=== PATIENT | male | born 1970 | race Two or more races ===

== ENCOUNTER 2017-09-27 | Inpatient (IN) | payer MEDICARE, MEDICAID ==
[~2017-09-27] VITALS: Ht 177.8 cm; Wt 80.2 kg
[~2017-09-27] MED LIST: ACET-75 PO; CETI10TA18 PO; CYCL-1 PO; DIPH-423 PO; DIPH25CA46 PO; GLUC100017 PO; LACT10SO PO; NAPR-1144 PO; NAPR-56 PO; NORT25CA PO; OMEG-79 PO; PRED5DRO7 OP; SERT50TA PO; TRAM50TA2 PO; TRAZ-143 PO; TRIA10.8 INH; ZIPR20CA2 PO
[2017-09-27] MEDS ORDERED: adenosine 3mg/ml 2ml vial IV ONE ×4 (00:19→06:00)
[2017-09-27] MEDS ORDERED: normal saline 1000ml 1,000 ML IV ONE ×4 (00:30→01:10)
[2017-09-27] MEDS ORDERED: diltiazem 5mg/ml 5ml inj. IV ONE (00:30)
[2017-09-27] MEDS ORDERED: LORazepam 2 mg/ml vial IV ONE (00:35)
[2017-09-27] MEDS ORDERED: diltiazem-D5W 125mg/125ml 125 ML IV SCH (00:35)
[2017-09-27] MEDS ORDERED: LEVOCARNITINE 200 MG/ML IV ONE (00:36)
[2017-09-27] MEDS ORDERED: diltiazem-D5W 125mg/125ml 125 ML IV ONE (00:38)
[2017-09-27] MEDS ORDERED: verapamil 2.5 mg/ml inj IV ONE (00:40)
[2017-09-27] MEDS: amiodarone/D5 450MG/250ML BAG 250 ML IV SCH ×2 (00:58→09:07)
[2017-09-27] MEDS ORDERED: normal saline 1000ml 1,000 ML IV SCH (01:10)
[2017-09-27 01:27] LABS: ALANINE AMINOTRANSFERASE 58 U/L (12-78); ALBUMIN 3.5 G/DL (3.4-5.0); ALBUMIN/GLOBULIN RATIO 0.9 (1.1-1.5); ALKALINE PHOSPHATASE 124 IU/L (46-116); ANION GAP 11 (8-16); ASPARTATE AMINO TRANSFERASE 80 U/L (10-37); BILIRUBIN,TOTAL 0.3 MG/DL (0.1-1.0); BLOOD UREA NITROGEN 15 MG/DL (7-18); CALCIUM 8.3 MG/DL (8.5-10.1); CHLORIDE 104 MMOL/L (99-107); CREATININE 1.36 MG/DL (0.60-1.10); GLUCOSE 224 MG/DL (70-104); SODIUM 141 MMOL/L (135-145); TOTAL CARBON DIOXIDE 26.4 MMOL/L (24-32); TOTAL PROTEIN 7.2 G/DL (6.4-8.2); eGFR 56 ML/MIN
[2017-09-27 01:29] LABS: POTASSIUM 4.4 MMOL/L (3.5-5.1)
[2017-09-27] MEDS ORDERED: amiodarone 50MG/ML inj IV ONE ×2 (01:45→06:00)
[2017-09-27 02:11] LABS: BASOPHILS % (AUTO) 0.2 % (0-1); EOSINOPHILS # (AUTO) 0.3 X10'3 (0-0.9); EOSINOPHILS % (AUTO) 1.3 % (0-6); HEMATOCRIT 41.6 % (42.0-52.0); HEMOGLOBIN 14.2 g/dl (14.0-17.9); LYMPHOCYTES # (AUTO) 1.4 X10'3 (1.1-4.8); LYMPHOCYTES % (AUTO) 5.9 % (21-51); MEAN CORPUSCULAR HEMOGLOBIN 30.6 PG (27.0-31.0); MEAN CORPUSCULAR HGB CONC 34.1 % (33.0-36.5); MEAN CORPUSCULAR VOLUME 89.8 FL (78-98); MEAN PLATELET VOLUME 8.1 FL (7.4-10.4); MONOCYTES % (AUTO) 4.1 % (2-12); NEUTROPHILS % (AUTO) 88.5 % (42-75); PLATELET COUNT 359 X10'3 (140-440); RED BLOOD COUNT 4.63 X10'6 (4.70-6.10); RED CELL DISTRIBUTION WIDTH 11.8 % (11.5-14.5); WHITE BLOOD COUNT 23.7 X10'3 (4.5-11.0)
[2017-09-27] MEDS ORDERED: cefTRIAXone 1g/NS 100ml IVPB 100 ML IV ONE (02:25)
[2017-09-27 02:51] LABS: INR 1.1 INR; PARTIAL THROMBOPLASTIN TIME 26 SECONDS (22-32)
[2017-09-27] MEDS ORDERED: potassium Cl 20 mEq SR tablet PO PRN ×2 (02:55)
[2017-09-27] MEDS: normal saline 1000ml 1,000 ML IV SCH ×3 (02:55→22:53)
[2017-09-27] MEDS ORDERED: potassium Cl 40MEQ/NS 500ml 500 ML IV PRN ×2 (02:55)
[2017-09-27] MEDS ORDERED: ondansetron/PF 4mg/2ml inj IV PRN (02:55)
[2017-09-27] MEDS ORDERED: magnesium 2GM in 50ml NS 50 ML IV PRN (02:55)
[2017-09-27] MEDS ORDERED: magnesium Cl slow-release 64mg tablet PO PRN (02:55)
[2017-09-27] MEDS ORDERED: magnesium hydroxide 30ml (MOM) UD suspension PO PRN (02:55)
[2017-09-27] MEDS ORDERED: acetaminophen 325mg tablet PO PRN (02:55)
[2017-09-27] MEDS ORDERED: magnesium 4gm in 100ml NS 100 ML IV PRN (02:55)
[2017-09-27] MEDS ORDERED: mag hydrox/Alum hydrox/simeth 30ml oral suspension PO PRN (02:55)
[2017-09-27 03:52] LABS: CLARITY,URINE CLEAR (Clear); COLOR,URINE YELLOW (Yellow); GLUCOSE, URINE 100 mg/dl (Neg); KETONES,URINE NEGATIVE (Neg); LEUKOCYTE ESTERASE ,URINE NEGATIVE (Neg); NITRITES, URINE NEGATIVE (Neg); OCCULT BLOOD,URINE NEGATIVE (Neg); PROTEIN,URINE NEGATIVE (Neg); UROBILINOGEN,URINE 0.2 E.U/dL (0.2-1.0)
[2017-09-27 03:55] LABS: UA COLLECTION TYPE NON-SPECIFIED
[2017-09-27 03:58] LABS: URINE AMPHETAMINE SCREEN NEGATIVE (Neg); URINE BARBITUATE SCREEN NEGATIVE (Neg); URINE BENZODIAZEPINES SCREEN NEGATIVE (Neg); URINE CANNABINOID SCREEN NEGATIVE (Neg); URINE COCAINE SCREEN NEGATIVE (Neg); URINE METHADONE SCREEN NEGATIVE (Neg); URINE OPIATE SCREEN NEGATIVE (Neg); URINE PHENCYCLIDINE SCREEN NEGATIVE (Neg)
[2017-09-27] MEDS: enoxaparin 80mg/0.8ml syringe SUBCUT SCH ×2 (05:57→20:00)
[2017-09-27] MEDS ORDERED: magnesium sulf 1 GM/2 ML ONE (06:00)
[2017-09-27] MEDS ORDERED: naproxen 500mg tablet PO SCH (07:30)
[2017-09-27] MEDS: K and/or MAG REPLACEMENT MC SCH (08:00)
[2017-09-27] MEDS: cetirizine 10mg tablet PO SCH (08:00)
[2017-09-27 08:23] LABS: BASOPHILS % (AUTO) 0.3 % (0-1); EOSINOPHILS # (AUTO) 0.1 X10'3 (0-0.9); EOSINOPHILS % (AUTO) 1.1 % (0-6); HEMATOCRIT 36.2 % (42.0-52.0); HEMOGLOBIN 12.4 g/dl (14.0-17.9); LYMPHOCYTES # (AUTO) 1.5 X10'3 (1.1-4.8); LYMPHOCYTES % (AUTO) 13.7 % (21-51); MEAN CORPUSCULAR HEMOGLOBIN 30.7 PG (27.0-31.0); MEAN CORPUSCULAR HGB CONC 34.2 % (33.0-36.5); MEAN PLATELET VOLUME 8.4 FL (7.4-10.4); MONOCYTES # (AUTO) 0.7 X10'3 (0-0.9); MONOCYTES % (AUTO) 6.7 % (2-12); NEUTROPHILS # (AUTO) 8.6 X10'3 (1.8-7.7); NEUTROPHILS % (AUTO) 78.2 % (42-75); PLATELET COUNT 330 X10'3 (140-440); RED BLOOD COUNT 4.03 X10'6 (4.70-6.10); RED CELL DISTRIBUTION WIDTH 12.6 % (11.5-14.5)
[2017-09-27 08:33] LABS: ALANINE AMINOTRANSFERASE 65 U/L (12-78); ALBUMIN 3.1 G/DL (3.4-5.0); ALBUMIN/GLOBULIN RATIO 0.9 (1.1-1.5); ALKALINE PHOSPHATASE 110 IU/L (46-116); ANION GAP 6 (8-16); ASPARTATE AMINO TRANSFERASE 62 U/L (10-37); BILIRUBIN,TOTAL 0.3 MG/DL (0.1-1.0); BLOOD UREA NITROGEN 12 MG/DL (7-18); BUN/CREATININE RATIO 11.8 (5.4-32.0); CHLORIDE 106 MMOL/L (99-107); CREATININE 1.02 MG/DL (0.60-1.10); GLUCOSE 113 MG/DL (70-104); POTASSIUM 4.6 MMOL/L (3.5-5.1); SODIUM 140 MMOL/L (135-145); TOTAL CARBON DIOXIDE 27.7 MMOL/L (24-32); TOTAL PROTEIN 6.4 G/DL (6.4-8.2); eGFR 78 ML/MIN
[2017-09-27] MEDS: ziprasidone 20mg capsule PO SCH ×2 (08:59→20:56)
[2017-09-27] MEDS: sertraline 50mg tablet PO SCH (08:59)
[2017-09-27] MEDS: diphenhydrAMINE 25mg capsule PO SCH (09:00)
[2017-09-27] MEDS ORDERED: nitroGLYCERIN 0.4mg SUBLingual tab SL PRN (09:45)
[2017-09-27] MEDS: aspirin 325mg tablet, delayed-release (Ecotrin) PO SCH (10:31)
[2017-09-27] MEDS: metoprolol tartrate 12.5mg (1/2 tablet) PO SCH ×2 (10:32→20:56)
[2017-09-27] MEDS ORDERED: OXYM10TA6 PO (11:25)
[2017-09-27] MEDS ORDERED: FERR325T28 PO (11:25)
[2017-09-27 13:01] LABS: ALANINE AMINOTRANSFERASE 61 U/L (12-78); ALBUMIN 3.4 G/DL (3.4-5.0); ALBUMIN/GLOBULIN RATIO 1.1 (1.1-1.5); ALKALINE PHOSPHATASE 108 IU/L (46-116); ASPARTATE AMINO TRANSFERASE 46 U/L (10-37); BILIRUBIN,TOTAL 0.3 MG/DL (0.1-1.0); TOTAL PROTEIN 6.6 G/DL (6.4-8.2)
[2017-09-27] MEDS ORDERED: glucagon, human recombinant 1mg kit SUBCUT PRN (15:30)
[2017-09-27] MEDS ORDERED: insulin Lispro (HumaLOG) vial - multi-dose SQ SCH (15:30)
[2017-09-27] MEDS ORDERED: dextrose 50%-water 50ml dispensing syringe IV PRN ×2 (15:30)
[2017-09-27] MEDS ORDERED: dextrose ORAL solution 15 GM/59 ML bottle PO PRN ×2 (15:30)
[2017-09-27] MEDS ORDERED: MESSAGE TO PHARMACY PO ONE (15:30)
[2017-09-27] MEDS: amiodarone 200mg tablet PO SCH (20:55)
[2017-09-27] MEDS ORDERED: lactulose 20gm/30ml cup PO SCH (21:00)
[2017-09-27] MEDS ORDERED: nortriptyline 25mg capsule PO SCH (21:00)
[2017-09-27] MEDS ORDERED: warfarin 5mg tablet PO ONE (21:00)
[2017-09-27] MEDS ORDERED: traZODone 50mg tablet PO SCH (21:00)
[2017-09-27 23:00] VITALS: BP 106/63
[2017-09-28 02:35] VITALS: BP 96/60
[2017-09-28 05:49] LABS: BASOPHILS % (AUTO) 0.4 % (0-1); EOSINOPHILS # (AUTO) 0.6 X10'3 (0-0.9); EOSINOPHILS % (AUTO) 6.5 % (0-6); HEMATOCRIT 33.9 % (42.0-52.0); HEMOGLOBIN 11.6 g/dl (14.0-17.9); LYMPHOCYTES # (AUTO) 2.2 X10'3 (1.1-4.8); MEAN CORPUSCULAR HEMOGLOBIN 30.7 PG (27.0-31.0); MEAN CORPUSCULAR HGB CONC 34.3 % (33.0-36.5); MEAN CORPUSCULAR VOLUME 89.5 FL (78-98); MEAN PLATELET VOLUME 8.1 FL (7.4-10.4); MONOCYTES # (AUTO) 0.7 X10'3 (0-0.9); MONOCYTES % (AUTO) 7.8 % (2-12); NEUTROPHILS % (AUTO) 62.3 % (42-75); PLATELET COUNT 276 X10'3 (140-440); RED BLOOD COUNT 3.79 X10'6 (4.70-6.10); RED CELL DISTRIBUTION WIDTH 12.7 % (11.5-14.5); WHITE BLOOD COUNT 9.6 X10'3 (4.5-11.0)
[2017-09-28 06:00] VITALS: BP 107/68
[2017-09-28 06:11] LABS: INR 1.1 INR; PROTHROMBIN TIME 11.4 SECONDS (9.0-12.0)
[2017-09-28 06:34] LABS: ALANINE AMINOTRANSFERASE 49 U/L (12-78); ALBUMIN 3.1 G/DL (3.4-5.0); ALKALINE PHOSPHATASE 94 IU/L (46-116); ANION GAP 7 (8-16); ASPARTATE AMINO TRANSFERASE 30 U/L (10-37); BILIRUBIN,TOTAL 0.3 MG/DL (0.1-1.0); BLOOD UREA NITROGEN 12 MG/DL (7-18); BUN/CREATININE RATIO 13.8 (5.4-32.0); CALCIUM 7.4 MG/DL (8.5-10.1); CHLORIDE 106 MMOL/L (99-107); CHOLESTEROL 151 MG/DL (0-200); CREATININE 0.87 MG/DL (0.60-1.10); GLUCOSE 135 MG/DL (70-104); HDL CHOLESTEROL 74 MG/DL (35-60); LDL CHOLESTEROL 63 MG/DL (50-100); MAGNESIUM 1.9 MG/DL (1.5-2.4); POTASSIUM 4.3 MMOL/L (3.5-5.1); SODIUM 141 MMOL/L (135-145); TOTAL CARBON DIOXIDE 27.6 MMOL/L (24-32); TOTAL PROTEIN 6.3 G/DL (6.4-8.2); TRIGLYCERIDES 99 MG/DL (20-135); eGFR > 90 ML/MIN
[2017-09-28 06:36] LABS: TROPONIN I 0.33 NG/ML (0.0-0.05)
[2017-09-28] MEDS: metoprolol tartrate 12.5mg (1/2 tablet) PO SCH (07:28)
[2017-09-28] MEDS: cetirizine 10mg tablet PO SCH (07:28)
[2017-09-28] MEDS: aspirin 325mg tablet, delayed-release (Ecotrin) PO SCH (07:33)
[2017-09-28] MEDS: amiodarone 200mg tablet PO SCH (07:33)
[2017-09-28] MEDS: ziprasidone 20mg capsule PO SCH (07:34)
[2017-09-28] MEDS: diphenhydrAMINE 25mg capsule PO SCH (07:35)
[2017-09-28] MEDS: sertraline 50mg tablet PO SCH (07:36)
[2017-09-28] MEDS: enoxaparin 80mg/0.8ml syringe SUBCUT SCH (07:39)
[2017-09-28] MEDS: K and/or MAG REPLACEMENT MC SCH (08:00)
[2017-09-28] MEDS: normal saline 1000ml 1,000 ML IV SCH (08:53)
[2017-09-28] MEDS ORDERED: FERR325T28 PO (10:33)
[2017-09-28] MEDS ORDERED: WARF2TAB7 PO (10:33)
[2017-09-28] MEDS ORDERED: METO25TA6 PO (10:33)
[2017-09-28] MEDS ORDERED: LACT10SO32 PO (10:33)
== END 2017-09-28 11:40 | disposition home or self-care (01) | DRG 309 ==
LOC: ER 00:01 → ED HOLD 02:53 → PCU 3S 19:20
PROVIDERS: ADMIT Internal Medicine; ATTEND Internal Medicine
DX: I47.1 Supraventricular tachycardia (principal); I42.9 Cardiomyopathy, unspecified; I07.1 Rheumatic tricuspid insufficiency; I48.92 Unspecified atrial flutter; I48.91 Unspecified atrial fibrillation; E86.0 Dehydration; D72.829 Elevated white blood cell count, unspecified; F32.9 Major depressive disorder, single episode, unspecified; R73.9 Hyperglycemia, unspecified; G47.00 Insomnia, unspecified; I25.10 Atherosclerotic heart disease of native coronary artery without angina pectoris; N28.9 Disorder of kidney and ureter, unspecified; G89.29 Other chronic pain; M54.9 Dorsalgia, unspecified; R62.50 Unspecified lack of expected normal physiological development in childhood; F17.220 Nicotine dependence, chewing tobacco, uncomplicated; Z79.01 Long term (current) use of anticoagulants; Z79.899 Other long term (current) drug therapy; Z88.5 Allergy status to narcotic agent
CPT/HCPCS: 36415; 71045; 80053; 80061; 80076; 80305; 81003; 82948; 83036; 83735; 84439; 84443; 84484; 85025; 85610; 85730; 87070; 93306; 96361; 96374; 96375; 99285; J0153; J0282; J0696; J1650; J2060; J3475; J3490; J7030; Q0163

== ENCOUNTER 2021-02-10 05:51 | Day surgery (SDC) | payer MEDICARE, MEDICAID ==
[~2021-02-10] VITALS: Ht 175.3 cm; Wt 87.3 kg
[2021-02-10] VITALS (9 sets, daily range): BP systolic 100–124; BP diastolic 44–87
[~2021-02-10 05:51] MED LIST changes: +DIPH-1055 PO; -DIPH-423 PO; -DIPH25CA46 PO; +FERR325T28 PO; -LACT10SO PO; +LACT10SO32 PO; +LOP25T PO; -NAPR-1144 PO; -NAPR-56 PO; +OXYM10TA6 PO; -TRAZ-143 PO; +TRAZ-251 PO; +WARF-65 PO
[2021-02-10] MEDS ORDERED: normal saline 1,000 ML IV SCH (06:15)
[2021-02-10] MEDS ORDERED: diphenhydrAMINE 25mg capsule PO PRN (06:15)
[2021-02-10 06:50] LABS: EOSINOPHILS # (AUTO) 0.3 X10'3 (0-0.9); LYMPHOCYTES # (AUTO) 2.1 X10'3 (1.1-4.8)
[2021-02-10 06:52] LABS: BASOPHILS % (AUTO) 0.4 % (0-1); HEMATOCRIT 43.4 % (42.0-52.0); HEMOGLOBIN 14.8 g/dl (14.0-17.9); LYMPHOCYTES % (AUTO) 22.9 % (21-51); MEAN CORPUSCULAR HEMOGLOBIN 30.6 PG (27.0-31.0); MEAN CORPUSCULAR HGB CONC 34.2 g/dL (33.0-36.5); MEAN CORPUSCULAR VOLUME 89.6 FL (78-98); MEAN PLATELET VOLUME 8.3 FL (7.4-10.4); MONOCYTES # (AUTO) 0.7 X10'3 (0-0.9); MONOCYTES % (AUTO) 7.9 % (2-12); NEUTROPHILS % (AUTO) 65.8 % (42-75); PLATELET COUNT 375 X10'3 (140-440); RED BLOOD COUNT 4.84 X10'6 (4.70-6.10); RED CELL DISTRIBUTION WIDTH 12.8 % (11.5-14.5); WHITE BLOOD COUNT 9.2 X10'3 (4.5-11.0)
[2021-02-10 07:01] LABS: PARTIAL THROMBOPLASTIN TIME 34 SECONDS (22-32)
[2021-02-10] MEDS ORDERED: LORA10TA7 PO (07:05)
[2021-02-10] MEDS ORDERED: WARF4TAB69 PO (07:05)
[2021-02-10] MEDS ORDERED: GABA-530 PO (07:05)
[2021-02-10] MEDS ORDERED: RISP0.5T50 PO (07:05)
[2021-02-10] MEDS ORDERED: SERT100T PO (07:05)
[2021-02-10] MEDS ORDERED: METF-436 PO (07:05)
[2021-02-10] MEDS ORDERED: [UNRECOGNIZED DRUG - CODE] PO (07:05)
[2021-02-10] MEDS ORDERED: ROSU40TA PO (07:05)
[2021-02-10] MEDS ORDERED: COL250C PO (07:05)
[2021-02-10 07:29] LABS: ALANINE AMINOTRANSFERASE 26 U/L (12-78); ALBUMIN 4.6 G/DL (3.4-5.0); ALBUMIN/GLOBULIN RATIO 1.2 (1.1-1.5); ALKALINE PHOSPHATASE 86 IU/L (46-116); ANION GAP 10 (8-16); ASPARTATE AMINO TRANSFERASE 16 U/L (10-37); BILIRUBIN,TOTAL 0.5 MG/DL (0.1-1.0); BLOOD UREA NITROGEN 12 MG/DL (7-18); BUN/CREATININE RATIO 12.1 (5.4-32.0); CALCIUM 8.6 MG/DL (8.5-10.1); CHLORIDE 100 MMOL/L (99-107); CREATININE 0.99 MG/DL (0.60-1.10); GLUCOSE 136 MG/DL (70-104); MAGNESIUM 1.9 MG/DL (1.5-2.4); POTASSIUM 4.5 MMOL/L (3.5-5.1); SODIUM 138 MMOL/L (135-145); TOTAL CARBON DIOXIDE 27.9 MMOL/L (24-32); TOTAL PROTEIN 8.3 G/DL (6.4-8.2); eGFR 79 ML/MIN
[2021-02-10] MEDS ORDERED: fentaNYL/PF 50MCG/1 ML 2ML syringe ONE (08:15)
[2021-02-10] MEDS ORDERED: iohexol 350 MG/ML 50ML vial IV ONE ×2 (08:15→09:42)
[2021-02-10] MEDS ORDERED: heparin 1,000unit/ml 10ml vial 10 ML ONE (08:15)
[2021-02-10] MEDS ORDERED: iohexol 350MG/ML 100ml bottle IV ONE (08:15)
[2021-02-10] MEDS ORDERED: LIDOcaine 1% (10mg/ml)w/preservative injection 20ml MDV ONE (08:15)
[2021-02-10] MEDS ORDERED: midazolam 1 mg/ML 2ml injection ONE ×4 (08:15→09:27)
[2021-02-10] MEDS ORDERED: proCHLORperazine 10 MG/2 ml inj ONE (09:25)
[2021-02-10] MEDS ORDERED: diphenhydrAMINE 50 mg/ml inj ONE (09:34)
[2021-02-10] MEDS ORDERED: ondansetron/PF 4mg/2ml inj IV PRN (10:20)
[2021-02-10] MEDS ORDERED: proCHLORperazine 10 MG/2 ml inj IV PRN (10:20)
[2021-02-10] MEDS ORDERED: acetaminophen 325mg tablet PO PRN (10:20)
== END 2021-02-10 13:15 | disposition home or self-care (01) ==
LOC: SSTAY O 05:51
PROVIDERS: ATTEND Internal Medicine Cardiovascular Disease
DX: R94.39 Abnormal result of other cardiovascular function study (principal); I37.1 Nonrheumatic pulmonary valve insufficiency; I48.3 Typical atrial flutter; I45.19 Other right bundle-branch block; F25.9 Schizoaffective disorder, unspecified; E78.5 Hyperlipidemia, unspecified; F17.220 Nicotine dependence, chewing tobacco, uncomplicated; Z88.5 Allergy status to narcotic agent; Z79.899 Other long term (current) drug therapy; Z79.01 Long term (current) use of anticoagulants; Z98.890 Other specified postprocedural states; Z82.49 Family history of ischemic heart disease and other diseases of the circulatory system
CPT/HCPCS: 36415; 80053; 82948; 83735; 85025; 85610; 85730; 93005; 93458; 99152; 99153; C1760; C1769; C1894; J0780; J1200; J1644; J2001; J2250; J3010; J7030; Q0163; Q9967; A4620; A6258

== ENCOUNTER 2021-06-17 09:51 | Emergency (ER) | payer MEDICARE, MEDICAID ==
[~2021-06-17] VITALS: Ht 167.6 cm; Wt 88.6 kg
[~2021-06-17 09:51] MED LIST changes: -CETI10TA18 PO; +CETI10TA19 PO; +COL250C PO; -FERR325T28 PO; +GABA-530 PO; -GLUC100017 PO; -LACT10SO32 PO; +LORA10TA7 PO; +METF-436 PO; -OMEG-79 PO; -OXYM10TA6 PO; +RISP0.5T45 PO; +ROSU40TA PO; +SERT100T PO; -SERT50TA PO; -TRAM50TA2 PO; -WARF-65 PO; +WARF4TAB69 PO; +[UNRECOGNIZED DRUG - CODE] PO
[2021-06-17] MEDS ORDERED: normal saline 1000ML IV soln IVB ONE (10:20)
[2021-06-17] MEDS ORDERED: adenosine 3mg/ml 2ml vial IV ONE ×2 (10:20)
[2021-06-17 10:33] LABS: EOSINOPHILS # (AUTO) 0.1 X10'3 (0-0.9); EOSINOPHILS % (AUTO) 0.8 % (0-6); HEMOGLOBIN 14.9 g/dl (14.0-17.9); MEAN PLATELET VOLUME 9.2 FL (7.4-10.4); MONOCYTES # (AUTO) 0.7 X10'3 (0-0.9); NEUTROPHILS # (AUTO) 9.8 X10'3 (1.8-7.7); RED CELL DISTRIBUTION WIDTH 12.7 % (11.5-14.5)
[2021-06-17 10:34] LABS: BASOPHILS # (AUTO) 0.1 X10'3 (0-0.2); BASOPHILS % (AUTO) 0.5 % (0-1); HEMATOCRIT 43.9 % (42.0-52.0); LYMPHOCYTES # (AUTO) 1.7 X10'3 (1.1-4.8); LYMPHOCYTES % (AUTO) 13.8 % (21-51); MEAN CORPUSCULAR HEMOGLOBIN 30.3 PG (27.0-31.0); MEAN CORPUSCULAR HGB CONC 33.8 g/dL (33.0-36.5); MEAN CORPUSCULAR VOLUME 89.5 FL (78-98); NEUTROPHILS % (AUTO) 78.9 % (42-75); PLATELET COUNT 410 X10'3 (140-440); RED BLOOD COUNT 4.91 X10'6 (4.70-6.10); WHITE BLOOD COUNT 12.4 X10'3 (4.5-11.0)
[2021-06-17] MEDS ORDERED: MIDAZolam 5mg/ml 2ml vial IV ONE (10:45)
[2021-06-17 11:21] LABS: ALANINE AMINOTRANSFERASE 24 U/L (12-78); ALBUMIN 3.9 G/DL (3.4-5.0); ALBUMIN/GLOBULIN RATIO 1.1 (1.1-1.5); ALKALINE PHOSPHATASE 80 IU/L (46-116); ANION GAP 6 (8-16); ASPARTATE AMINO TRANSFERASE 17 U/L (10-37); BILIRUBIN,TOTAL 0.2 MG/DL (0.1-1.0); BLOOD UREA NITROGEN 14 MG/DL (7-18); BUN/CREATININE RATIO 12.3 (5.4-32.0); CALCIUM 8.4 MG/DL (8.5-10.1); CHLORIDE 101 MMOL/L (99-107); CREATININE 1.14 MG/DL (0.60-1.10); GLUCOSE 189 MG/DL (70-104); POTASSIUM 4.8 MMOL/L (3.5-5.1); SODIUM 135 MMOL/L (135-145); TOTAL CARBON DIOXIDE 28.3 MMOL/L (24-32); TOTAL PROTEIN 7.4 G/DL (6.4-8.2); eGFR 67 ML/MIN
[2021-06-17 11:24] LABS: MAGNESIUM 1.9 MG/DL (1.5-2.4)
[2021-06-17 12:18] VITALS: BP 98/74
[2021-06-17] MEDS ORDERED: SOTA80TA46 PO (13:21)
== END 2021-06-17 13:37 | disposition home or self-care (01) ==
LOC: ER 09:51
DX: I49.9 Cardiac arrhythmia, unspecified (principal); E11.9 Type 2 diabetes mellitus without complications; G89.29 Other chronic pain; M54.9 Dorsalgia, unspecified; Z88.5 Allergy status to narcotic agent; Z88.8 Allergy status to other drugs, medicaments and biological substances
CPT/HCPCS: 36415; 71045; 80053; 83735; 84484; 85025; 85610; 93005; 94799; 96374; 96375; 96376; 99285; J0153; J2250; J7030; 94760

== ENCOUNTER 2022-07-28 09:11 | Emergency (ER) | payer MEDICARE, MEDICAID ==
[~2022-07-28] VITALS: Ht 175.3 cm; Wt 89.5 kg
[~2022-07-28 09:11] MED LIST changes: +SOTA80TA46 PO
[2022-07-28] MEDS ORDERED: diltiazem 5mg/ml 5ml inj. IV STA (09:28)
[2022-07-28 09:39] LABS: BASOPHILS % (AUTO) 0.3 % (0-1); EOSINOPHILS # (AUTO) 0.4 X10'3 (0-0.9); EOSINOPHILS % (AUTO) 3.8 % (0-6); HEMATOCRIT 40.1 % (42.0-52.0); HEMOGLOBIN 13.3 g/dl (14.0-17.9); LYMPHOCYTES # (AUTO) 2.4 X10'3 (1.1-4.8); LYMPHOCYTES % (AUTO) 23.6 % (21-51); MEAN CORPUSCULAR HEMOGLOBIN 29.5 PG (27.0-31.0); MEAN CORPUSCULAR HGB CONC 33.2 g/dL (33.0-36.5); MONOCYTES # (AUTO) 0.9 X10'3 (0-0.9); MONOCYTES % (AUTO) 8.8 % (2-12); NEUTROPHILS # (AUTO) 6.5 X10'3 (1.8-7.7); NEUTROPHILS % (AUTO) 63.5 % (42-75); PLATELET COUNT 316 X10'3 (140-440); RED CELL DISTRIBUTION WIDTH 12.7 % (11.5-14.5); WHITE BLOOD COUNT 10.3 X10'3 (4.5-11.0)
[2022-07-28 09:59] LABS: ALANINE AMINOTRANSFERASE 25 U/L (12-78); ALBUMIN 3.7 G/DL (3.4-5.0); ALBUMIN/GLOBULIN RATIO 1.2 (1.1-1.5); ALKALINE PHOSPHATASE 87 IU/L (46-116); ANION GAP 8 (8-16); ASPARTATE AMINO TRANSFERASE 25 U/L (10-37); BILIRUBIN,TOTAL 0.2 MG/DL (0.1-1.0); BLOOD UREA NITROGEN 7 MG/DL (7-18); BUN/CREATININE RATIO 7.7 (5.4-32.0); CALCIUM 7.6 MG/DL (8.5-10.1); CHLORIDE 100 MMOL/L (99-107); CREATININE 0.91 MG/DL (0.60-1.10); GLUCOSE 237 MG/DL (70-104); POTASSIUM 4.4 MMOL/L (3.5-5.1); SODIUM 135 MMOL/L (135-145); TOTAL CARBON DIOXIDE 26.8 MMOL/L (24-32); TOTAL PROTEIN 6.7 G/DL (6.4-8.2); eGFR 87 ML/MIN
--- NOTE | 2022-07-28 10:03 | NUR ---
DR.Elkins price aware regarding patient's increased HR 130's.
[2022-07-28] MEDS ORDERED: diltiazem 5mg/ml 5ml inj. IV ONE (10:05)
--- NOTE | 2022-07-28 10:28 | NUR ---
CARLEY VILLATORO AT THIS TIME. Addendum: 07/28/22 at [address] KAY.
--- NOTE | 2022-07-28 10:58 | NUR ---
patient insisted he wants to go up to the bathroom,came back in the room without reported dizziness or light headedness.
[2022-07-28] MEDS ORDERED: SOTA80TA46 PO (11:49)
[2022-07-28 11:54] VITALS: BP 116/86
== END 2022-07-28 13:14 | disposition home or self-care (01) ==
LOC: ER 09:11
DX: S50.812A Abrasion of left forearm, initial encounter (principal); I47.1 Supraventricular tachycardia; I10 Essential (primary) hypertension; R55 Syncope and collapse; E11.9 Type 2 diabetes mellitus without complications; G89.29 Other chronic pain; Z79.899 Other long term (current) drug therapy; Z88.5 Allergy status to narcotic agent; Z88.8 Allergy status to other drugs, medicaments and biological substances; Z79.84 Long term (current) use of oral hypoglycemic drugs; X58.XXXA Exposure to other specified factors, initial encounter; Y93.89 Activity, other specified; Y92.89 Other specified places as the place of occurrence of the external cause; Y99.8 Other external cause status
CPT/HCPCS: 36415; 70450; 71045; 80053; 83880; 84484; 85025; 93005; 96374; 99285; J3490; J7030

== ENCOUNTER 2023-02-13 12:39 | Emergency (ER) | payer MEDICARE, MEDICAID ==
[~2023-02-13] VITALS: Ht 175.3 cm; Wt 90.9 kg
[~2023-02-13 12:39] MED LIST changes: -COL250C PO; +DOCU-396 PO
[2023-02-13] MEDS ORDERED: diltiazem 5mg/ml 5ml inj. IV ONE ×2 (12:50→13:20)
[2023-02-13] MEDS ORDERED: adenosine 3mg/ml 2ml vial IV ONE (12:50)
[2023-02-13] MEDS ORDERED: magnesium 2GM in 50ml NS 50 ML IV ONE (13:00)
[2023-02-13 13:10] LABS: BASOPHILS # (AUTO) 0.1 X10'3 (0-0.2); BASOPHILS % (AUTO) 0.6 % (0-1); EOSINOPHILS # (AUTO) 0.1 X10'3 (0-0.9); EOSINOPHILS % (AUTO) 0.9 % (0-6); HEMATOCRIT 41.6 % (42.0-52.0); HEMOGLOBIN 13.8 g/dl (14.0-17.9); LYMPHOCYTES # (AUTO) 3.2 X10'3 (1.1-4.8); LYMPHOCYTES % (AUTO) 22.3 % (21-51); MEAN CORPUSCULAR HEMOGLOBIN 28.9 PG (27.0-31.0); MEAN CORPUSCULAR HGB CONC 33.1 g/dL (33.0-36.5); MEAN CORPUSCULAR VOLUME 87.5 FL (78-98); MEAN PLATELET VOLUME 8.9 FL (7.4-10.4); MONOCYTES # (AUTO) 1.5 X10'3 (0-0.9); MONOCYTES % (AUTO) 10.8 % (2-12); NEUTROPHILS # (AUTO) 9.3 X10'3 (1.8-7.7); NEUTROPHILS % (AUTO) 65.4 % (42-75); PLATELET COUNT 500 X10'3 (140-440); RED BLOOD COUNT 4.75 X10'6 (4.70-6.10); RED CELL DISTRIBUTION WIDTH 12.8 % (11.5-14.5); WHITE BLOOD COUNT 14.2 X10'3 (4.5-11.0)
[2023-02-13 13:14] LABS: ALANINE AMINOTRANSFERASE 22 U/L (12-78); ALBUMIN 3.9 G/DL (3.4-5.0); ALBUMIN/GLOBULIN RATIO 1.1 (1.1-1.5); ALKALINE PHOSPHATASE 108 IU/L (46-116); ANION GAP 12 (8-16); ASPARTATE AMINO TRANSFERASE 19 U/L (10-37); BILIRUBIN,TOTAL 0.3 MG/DL (0.1-1.0); BLOOD UREA NITROGEN 16 MG/DL (7-18); CALCIUM 8.7 MG/DL (8.5-10.1); CHLORIDE 97 MMOL/L (99-107); CREATININE 1.07 MG/DL (0.60-1.10); GLUCOSE 253 MG/DL (70-104); SODIUM 134 MMOL/L (135-145); TOTAL CARBON DIOXIDE 25.2 MMOL/L (24-32); TOTAL PROTEIN 7.6 G/DL (6.4-8.2); eGFR 72 ML/MIN
[2023-02-13] MEDS ORDERED: etomidate 2mg/ml inj. IV ONE (13:25)
[2023-02-13] MEDS ORDERED: normal saline 1000ML IV soln IVB ONE (13:25)
--- NOTE | 2023-02-13 14:15 | NUR ---
PT AOX4 AND IS MAKING PHONE CALLS ON HIS CELL UPDATING CAREGIVERS ON PROCEEDURE.
[2023-02-13 16:05] VITALS: BP 130/81; PULSE 91; RESP 20; O2SAT 98
== END 2023-02-13 16:08 | disposition home or self-care (01) ==
LOC: ER 12:39
DX: I48.92 Unspecified atrial flutter (principal); E11.9 Type 2 diabetes mellitus without complications; G89.29 Other chronic pain; M54.9 Dorsalgia, unspecified; Z88.5 Allergy status to narcotic agent; Z88.8 Allergy status to other drugs, medicaments and biological substances; Z79.899 Other long term (current) drug therapy; Z79.1 Long term (current) use of non-steroidal anti-inflammatories (NSAID)
CPT/HCPCS: 36415; 71045; 80053; 83880; 84484; 85025; 92960; 93005; 96365; 96375; 99285; J0153; J3475; J3490; J7030

== ENCOUNTER 2023-05-21 16:00 | Emergency (ER) | payer MEDICARE, MEDICAID ==
[~2023-05-21] VITALS: Ht 175.3 cm; Wt 91.0 kg
[2023-05-21] MEDS ORDERED: magnesium 2GM in 50ml NS 50 ML IV ONE (16:30)
[2023-05-21] MEDS ORDERED: diltiazem 5mg/ml 5ml inj. IV ONE (16:30)
[2023-05-21] MEDS ORDERED: normal saline 1000ML IV soln IVB ONE (16:35)
[2023-05-21 16:38] LABS: BASOPHILS % (AUTO) 0.4 % (0-1); EOSINOPHILS # (AUTO) 0.6 X10'3 (0-0.9); EOSINOPHILS % (AUTO) 5.7 % (0-6); HEMATOCRIT 42.5 % (42.0-52.0); HEMOGLOBIN 14.2 g/dl (14.0-17.9); LYMPHOCYTES # (AUTO) 3.4 X10'3 (1.1-4.8); LYMPHOCYTES % (AUTO) 30.5 % (21-51); MEAN CORPUSCULAR HEMOGLOBIN 29.2 PG (27.0-31.0); MEAN CORPUSCULAR HGB CONC 33.3 g/dL (33.0-36.5); MEAN CORPUSCULAR VOLUME 87.9 FL (78-98); MEAN PLATELET VOLUME 8.8 FL (7.4-10.4); MONOCYTES # (AUTO) 1.1 X10'3 (0-0.9); NEUTROPHILS % (AUTO) 53.4 % (42-75); PLATELET COUNT 376 X10'3 (140-440); RED BLOOD COUNT 4.84 X10'6 (4.70-6.10); RED CELL DISTRIBUTION WIDTH 13.2 % (11.5-14.5); WHITE BLOOD COUNT 11.2 X10'3 (4.5-11.0)
[2023-05-21 16:59] VITALS: PULSE 92
[2023-05-21 17:06] LABS: ALANINE AMINOTRANSFERASE 14 U/L (12-78); ALBUMIN 3.8 G/DL (3.4-5.0); ALBUMIN/GLOBULIN RATIO 1.1 (1.1-1.5); ALKALINE PHOSPHATASE 103 IU/L (46-116); ANION GAP 7 (8-16); ASPARTATE AMINO TRANSFERASE 15 U/L (10-37); BILIRUBIN,TOTAL 0.1 MG/DL (0.1-1.0); BLOOD UREA NITROGEN 9 MG/DL (7-18); BUN/CREATININE RATIO 10.1 (10.0-20.0); CALCIUM 8.1 MG/DL (8.5-10.1); CHLORIDE 96 MMOL/L (99-107); CREATININE 0.89 MG/DL (0.60-1.10); GLUCOSE 216 MG/DL (70-104); POTASSIUM 4.2 MMOL/L (3.5-5.1); SODIUM 132 MMOL/L (135-145); TOTAL CARBON DIOXIDE 28.9 MMOL/L (24-32); TOTAL PROTEIN 7.4 G/DL (6.4-8.2); eCRCL 95 ML/MIN; eGFR 89 ML/MIN
[2023-05-21] MEDS ORDERED: etomidate 2mg/ml inj. IV ONE (17:15)
--- NOTE | 2023-05-21 17:38 | NUR ---
PT REFUSING TO USE URINAL INSISTING TO USE BATHROOM ,INSTRUCTED HE COULD GET DIZZY AND FALL ,DISCUSSED THE RISK AFTER ,PT USED THE RESTROOM WITH STANDBY ASSISTANCE .
--- NOTE | 2023-05-21 17:39 | NUR ---
PT BACK TO ROOM ,PLACED ON MONITOR ,HR 88 NSR.
[2023-05-21 18:25] VITALS: BP 110/73; RESP 13; TEMP 98; O2SAT 97
== END 2023-05-21 18:37 | disposition home or self-care (01) ==
LOC: ER 16:01
DX: I48.91 Unspecified atrial fibrillation (principal); E11.9 Type 2 diabetes mellitus without complications; G89.29 Other chronic pain; Z98.890 Other specified postprocedural states; Z88.5 Allergy status to narcotic agent; Z88.8 Allergy status to other drugs, medicaments and biological substances; Z79.84 Long term (current) use of oral hypoglycemic drugs; Z79.899 Other long term (current) drug therapy
CPT/HCPCS: 36415; 71045; 80053; 83880; 84484; 85025; 93005; 96365; 96375; 99285; J3475; J3490; J7030

== ENCOUNTER 2024-05-22 08:35 | Emergency (ER) | payer MEDICARE, MEDICAID ==
[~2024-05-22] VITALS: Ht 177.8 cm; Wt 89.4 kg
[~2024-05-22 08:35] MED LIST changes: -ACET-75 PO; -CETI10TA19 PO; -CYCL-1 PO; -DIPH-1055 PO; +DIPH-1212 PO; -DOCU-396 PO; -GABA-530 PO; -LOP25T PO; -LORA10TA7 PO; -PRED5DRO7 OP; -ROSU40TA PO; -SOTA80TA46 PO; -TRAZ-251 PO; -TRIA10.8 INH; -WARF4TAB69 PO; -ZIPR20CA2 PO
[2024-05-22 09:52] LABS: BASOPHILS % (AUTO) 0.3 % (0-1); EOSINOPHILS # (AUTO) 0.1 X10'3 (0-0.9); EOSINOPHILS % (AUTO) 0.4 % (0-6); HEMATOCRIT 43.7 % (42.0-52.0); HEMOGLOBIN 14.4 g/dl (14.0-17.9); LYMPHOCYTES # (AUTO) 2.5 X10'3 (1.1-4.8); LYMPHOCYTES % (AUTO) 19.3 % (21-51); MEAN CORPUSCULAR HEMOGLOBIN 29.8 PG (27.0-31.0); MEAN CORPUSCULAR HGB CONC 32.9 g/dL (33.0-36.5); MEAN CORPUSCULAR VOLUME 90.4 FL (78-98); MEAN PLATELET VOLUME 9.7 FL (7.4-10.4); MONOCYTES # (AUTO) 0.7 X10'3 (0-0.9); MONOCYTES % (AUTO) 5.7 % (2-12); NEUTROPHILS # (AUTO) 9.7 X10'3 (1.8-7.7); NEUTROPHILS % (AUTO) 74.3 % (42-75); PLATELET COUNT 407 X10'3 (140-440); RED BLOOD COUNT 4.84 X10'6 (4.70-6.10); RED CELL DISTRIBUTION WIDTH 12.8 % (11.5-14.5); WHITE BLOOD COUNT 13.1 X10'3 (4.5-11.0)
[2024-05-22] MEDS: ondansetron/PF 4mg/2ml inj IV ONE (09:54)
[2024-05-22] MEDS: MIDAZolam 1 MG/ML 5ML VIAL IV ONE (09:55)
[2024-05-22] MEDS: ketamine 50 mg/ml 10ml vial IV ONE (09:57)
[2024-05-22 10:06] LABS: ALANINE AMINOTRANSFERASE 27 U/L (12-78); ALBUMIN/GLOBULIN RATIO 1.1 (1.1-1.5); ALKALINE PHOSPHATASE 98 IU/L (46-116); ANION GAP 9 (8-16); ASPARTATE AMINO TRANSFERASE 21 U/L (10-37); BILIRUBIN,TOTAL 0.4 MG/DL (0.1-1.0); BLOOD UREA NITROGEN 21 MG/DL (7-18); BUN/CREATININE RATIO 16.2 (10.0-20.0); CALCIUM 8.5 MG/DL (8.5-10.1); CHLORIDE 97 MMOL/L (99-107); GLUCOSE 322 MG/DL (70-104); SODIUM 133 MMOL/L (135-145); TOTAL CARBON DIOXIDE 27.1 MMOL/L (24-32); TOTAL PROTEIN 7.8 G/DL (6.4-8.2); eCRCL 66 ML/MIN; eGFR 57 ML/MIN
[2024-05-22 10:16] LABS: PRO BRAIN NATRIURETIC PEPTIDE 3476 PG/ML (0-125)
[2024-05-22 10:17] LABS: POTASSIUM 5.2 MMOL/L (3.5-5.1)
[2024-05-22] MEDS: magnesium sulf-water 2g/50mL 50 ML IV ONE (10:17)
[2024-05-22 12:15] VITALS: TEMP 98
[2024-05-22 14:13] VITALS: BP 118/83; PULSE 79; RESP 16; O2SAT 97
== END 2024-05-22 14:32 | disposition home or self-care (01) ==
LOC: ER 08:36
DX: I48.20 Chronic atrial fibrillation, unspecified (principal); G89.29 Other chronic pain; E11.9 Type 2 diabetes mellitus without complications; Z88.5 Allergy status to narcotic agent; Z88.8 Allergy status to other drugs, medicaments and biological substances; Z79.899 Other long term (current) drug therapy; Z79.01 Long term (current) use of anticoagulants
CPT/HCPCS: 36415; 71045; 80053; 83880; 84484; 85025; 92960; 93005; 96365; 96375; 99152; 99291; A4620; J2250; J2405; J3490